=== PATIENT | female | born 1970 | race Two or more races ===

== ENCOUNTER 2016-09-13 12:34 | Day surgery (SDC) | payer OTHER ==
[2016-09-12 10:25] VITALS: BMI 35.9
[~2016-09-13 12:34] MED LIST: LACTATED RINGERS 1,000 ML IV SCH
[2016-09-13] MEDS ORDERED: LIDOCAINE 1% 20 ML VIAL (10MG/ML) FOR IV START INTRADERMA ONE (13:01)
[2016-09-13 13:05] VITALS: TEMP 98.1
[2016-09-13] MEDS ORDERED: PROPOFOL 10 MG/ML 20 ML VIAL IV ONE (13:49)
[2016-09-13] MEDS ORDERED: LIDOCAINE 1% INJ 10MG/ML (20 ML MDV) ONE (13:49)
--- NOTE | 2016-09-13 14:14 | P.PCN ---
Date of Procedure: 09/13/16 Procedure(s) Performed: Procedure: Esophagogastroduodenoscopy and biopsy. Preoperative diagnosis: Gastroesophageal reflux disease and recent issues with nocturnal vomiting. Postoperative diagnosis: 1. Sliding hiatal hernia with no obvious esophagitis or complicated reflux disease. 2. Mild antral gastritis. 3. Multiple biopsies obtained from the duodenum, antrum and esophagus. Preparation and sedation: Was provided by anesthesia. Brief clinical history: The patient is a 46-year-old female who has been experiencing acid reflux for the last year or so and has been taking acid suppressive therapy for control. Over the last month or so, and despite taking her medications, she has been experiencing nausea and vomiting an hour or so after she goes to bed. This has partially responded to changing her acid suppressive medications and taking it twice a day. This evaluation is to assess for esophagitis, complicated reflux disease or other pathology. Procedure: With the patient on her left lateral decubitus position and after informed consent and adequate sedation, I passed the Olympus-GIF 160 video upper endoscope through the cricopharyngeus down the esophagus. GE junction was around 35 cm from the incisors and there was a sliding hiatal hernia around 2 cm in size. The esophagus did not show any obvious erosions, ulcers, strictures or Dean's esophagus. The endoscope was then passed into the stomach which was insufflated with air and inspected in detail including the retroflex view in the cardia. There was some mottling and erythema in the antrum but no ulcers or erosions. Pyloric channel did not show any ulcers. Duodenal bulb, post bulbar area and descending duodenum showed minimal erythema. Because of her symptoms, I obtained multiple biopsies from the duodenum, antrum and esophagus then the endoscope was withdrawn. The patient tolerated the procedure well. Plan: The patient was reassured. Will await biopsy results and make further plans accordingly. It is possible that her nocturnal symptoms will continue to improve the longer she is on intensive dietary and medical regimen. She will follow-up with you as planned and I will be happy to see in the office of her symptoms persist.
[2016-09-13 14:37] VITALS: BP 118/68; PULSE 76; RESP 18
== END 2016-09-13 15:10 | disposition home or self-care (01) ==
LOC: ORWHC2ENDO 12:34
DX: K29.50 Unspecified chronic gastritis without bleeding (principal); K21.9 Gastro-esophageal reflux disease without esophagitis; K44.9 Diaphragmatic hernia without obstruction or gangrene; I25.10 Atherosclerotic heart disease of native coronary artery without angina pectoris; I10 Essential (primary) hypertension; I25.2 Old myocardial infarction; E78.5 Hyperlipidemia, unspecified; Z79.899 Other long term (current) drug therapy; Z91.09 Other allergy status, other than to drugs and biological substances
CPT/HCPCS: 81025; 88305; 88342; 43239; J2001; J2704

== ENCOUNTER 2018-01-15 09:50 | Day surgery (SDC) | payer OTHER ==
[2018-01-13 15:40] VITALS: BMI 36.9
[2018-01-15 11:18] LABS: Glucose,Whole Blood 94 mg/dL (75-99)
[2018-01-15 11:25] VITALS: RESP 18; TEMP 98.3
[2018-01-15] MEDS ORDERED: LIDOCAINE 1% 20 ML VIAL (10MG/ML) FOR IV START INTRADERMA ONE (11:26)
[2018-01-15] MEDS ORDERED: SUCCINYLCHOLINE CHLORIDE 100 MG/5 ML SYR IV ONE (11:45)
[2018-01-15] MEDS ORDERED: fentaNYL (PF) 50 MCG/ML 2 ML AMP ONE (11:45)
[2018-01-15] MEDS ORDERED: MIDAZOLAM 2 MG/2 ML VIAL ONE (11:45)
--- NOTE | 2018-01-15 12:04 | P.PCN ---
Date of Procedure: 01/15/18 Procedure(s) Performed: BRIEF HISTORY: Patient is a 47-year-old pleasant white female, scheduled for an elective colonoscopy as a part of evaluation of chronic diarrhea for the last 1 year duration. She has about 8-10 loose watery bowel movements daily. No weight loss. Denies any rectal bleeding or melena. She also has family history of colon cancer diagnosed in her father at age 63. PROCEDURE PERFORMED: Colonoscopy with biopsy/snare polypectomy. PREOPERATIVE DIAGNOSIS: Chronic diarrhea/family history of colon cancer. IV sedation per Anesthesia. PROCEDURE: After informed consent was obtained, the patient, was brought into the endoscopy unit. IV sedation was administered by Anesthesia under continuous monitoring. Digital rectal examination was normal. Initially the Olympus CF- 160 flexible video colonoscope was then inserted in the rectum, gradually advanced into the cecum without any difficulty. Careful examination was performed as the scope was gradually being withdrawn. Ileocecal valve and the appendiceal orifice were visualized and appeared normal. Prep was fair.. Mucosa of the cecum, ascending colon, appeared normal. In the hepatic flexure there was a 1 cm polyp removed by snare polypectomy. Rest of the transverse colon, descending colon, sigmoid colon, and rectum appeared normal. Random biopsies were done from ascending and descending colon to rule out metastatic scope/collagenous colitis. Retroflexion was performed in the rectum and no lesions were seen. The patient tolerated the procedure well. IMPRESSION: 1 cm hepatic flexure polyp status post polypectomy Rest of the colon appeared normal RECOMMENDATIONS: Findings of this examination were discussed with the patient as well as a family. She was advised to follow with the biopsy results. She' ll be seen in office in 3 weeks. She can have a repeat surveillance colonoscopy in 3-5 years..
[2018-01-15 12:26] VITALS: PULSE 68
[2018-01-15 12:49] VITALS: BP 126/78
== END 2018-01-15 13:02 | disposition home or self-care (01) ==
LOC: ORWHC2ENDO 09:50
PROVIDERS: ATTEND Internal Medicine Gastroenterology
DX: D12.3 Benign neoplasm of transverse colon (principal); K52.9 Noninfective gastroenteritis and colitis, unspecified; Z80.0 Family history of malignant neoplasm of digestive organs; I10 Essential (primary) hypertension; E78.5 Hyperlipidemia, unspecified; J45.909 Unspecified asthma, uncomplicated; E11.9 Type 2 diabetes mellitus without complications; F39 Unspecified mood [affective] disorder; I25.2 Old myocardial infarction; Z79.84 Long term (current) use of oral hypoglycemic drugs; Z79.899 Other long term (current) drug therapy; Z91.09 Other allergy status, other than to drugs and biological substances
CPT/HCPCS: 81025; 88305; 45380; 45385; J2250; J3010; J0330

== ENCOUNTER 2018-09-29 10:53 | Emergency (ER) | payer OTHER ==
[2018-09-29 11:06] VITALS: TEMP 98.5
[2018-09-29] MEDS ORDERED: SODIUM CHLORIDE 0.9% 1,000 ML IV STA ×2 (11:51)
[2018-09-29] MEDS ORDERED: ONDANSETRON 4 MG/2 ML VIAL IVP STA (12:13)
[2018-09-29] MEDS ORDERED: MORPHINE SULFATE 4 MG/ML SYRINGE IVP STA (12:13)
[2018-09-29] MEDS ORDERED: KETOROLAC 30 MG/ML 1 ML VIAL IVP STA (12:13)
--- NOTE | 2018-09-29 12:53 | ED ---
Abdominal Pain HPI - General Chief Complaint: Abdominal Pain Stated Complaint: Stomach pain Time Seen by Provider: 09/29/18 11:47 Source: patient, RN notes reviewed, old records reviewed Limitations: no limitations - History of Present Illness Initial Comments: Miller is a 48-year-old female presents return to the right upper quadrant and diffuse upper abdominal pain for the past 4 days. Patient states she's been having light-colored stools. Denies any change in urination. History of cholecystectomy. Patient states that she is to light colored stools and diarrhea the past 2 days. Patient states that she's had chills but no specific fever. He has history of hypertension and hyperlipidiema - Related Data Home Medications Medication Instructions Recorded Confirmed Lisinopril [Zestril] 10 mg PO QAM 05/27/14 01/13/18 Metoprolol Succinate (ER) [Toprol 25 mg PO QAM 05/27/14 01/13/18 Xl] Simvastatin [Zocor] 20 mg PO HS 05/27/14 01/15/18 ALPRAZolam [Xanax] 0.25 mg PO BID PRN 09/12/16 01/13/18 Lansoprazole [Prevacid] 30 mg PO BID 09/12/16 01/13/18 Fluticasone/Salmeterol [Advair 1 inhalation PO BID 01/13/18 01/13/18 250-50 Diskus] Isosorbide Mononitrate ER [Imdur] 30 mg PO QAM 01/13/18 01/13/18 metFORMIN HCL [Glucophage] 500 mg PO DAILY 01/13/18 01/15/18 Previous Rx's Medication Instructions Recorded Famotidine [Pepcid] 20 mg PO BID #20 tablet 09/29/18 Ondansetron Odt [Zofran Odt] 4 mg PO Q8HR PRN #12 tab 09/29/18 Sucralfate [Carafate] 1 gm PO ACHS #30 tablet 09/29/18 Allergies Allergy/AdvReac Type Severity Reaction Status Date / Time iodine AdvReac Abdominal Verified 09/29/18 11:02 Pain Review of Systems ROS Statement: Those systems with pertinent positive or pertinent negative responses have been documented in the HPI. ROS Other: All systems not noted in ROS Statement are negative. Past Medical History Past Medical History: Asthma, Diabetes Mellitus, GERD/Reflux, Hyperlipidemia, Hypertension, Myocardial Infarction (CT) Additional Past Medical History / Comment(s): loose stools-6-10 times per day,prediabetic Last Myocardial Infarction Date:: APR 2009 History of Any Multi-Drug Resistant Organisms: None Reported Past Surgical History: Cholecystectomy, Heart Catheterization, Uterine Ablation Additional Past Surgical History / Comment(s): Essure Past Anesthesia/Blood Transfusion Reactions: Motion Sickness, Postoperative Nausea & Vomiting (PONV) Past Psychological History: Anxiety, Panic Disorder Smoking Status: Never smoker Past Alcohol Use History: Occasional Past Drug Use History: None Reported - Past Family History Mother Family Medical History: Cancer, Deep Vein Thrombosis (DVT) Additional Family Medical History / Comment(s): PANCREATIC, LUNG,CANCER Father Family Medical History: Cancer Additional Family Medical History / Comment(s): COLON CA General Exam - General Exam Comments Initial Comments: This is a 48-year-old feel. Alert and oriented. No distress. Limitations: no limitations General appearance: alert, in no apparent distress Head exam: Present: atraumatic, normocephalic, normal inspection Eye exam: Present: normal appearance, PERRL, EOMI. Absent: scleral icterus, conjunctival injection, periorbital swelling ENT exam: Present: normal exam, mucous membranes moist Neck exam: Present: normal inspection. Absent: tenderness, meningismus, lymphadenopathy Respiratory exam: Present: normal lung sounds bilaterally. Absent: respiratory distress, wheezes, rales, rhonchi, stridor Cardiovascular Exam: Present: regular rate, normal rhythm, normal heart sounds. Absent: systolic murmur, diastolic murmur, rubs, gallop, clicks GI/Abdominal exam: Present: soft, normal bowel sounds. Absent: distended, tenderness, guarding, rebound, rigid Extremities exam: Present: normal inspection, full ROM, normal capillary refill. Absent: tenderness, pedal edema, joint swelling, calf tenderness Back exam: Present: normal inspection Neurological exam: Present: alert, oriented X3, CN II-XII intact Psychiatric exam: Present: normal affect, normal mood Skin exam: Present: warm, dry, intact, normal color. Absent: rash Course Vital Signs 09/29/18 09/29/18 09/29/18 11:03 12:53 13:30 Temperature 98.5 F Pulse Rate 89 74 74 Respiratory 18 18 16 Rate Blood Pressure 138/62 111/75 111/70 O2 Sat by Pulse 94 L 94 L 97 Oximetry 09/29/18 14:55 Temperature Pulse Rate 69 Respiratory 18 Rate Blood Pressure 106/75 O2 Sat by Pulse 100 Oximetry Medical Decision Making - Lab Data Result diagrams: 09/29/18 12:25 09/29/18 12:25 Lab Results 09/29/18 09/29/18 09/29/18 Range/Units 12:25 12:25 12:25 WBC 7.1 (3.8-10.6) k/uL RBC 4.78 (3.80-5.40) m/uL Hgb 13.8 (11.4-16.0) gm/dL Hct 42.3 (34.0-46.0) % MCV 88.5 (80.0-100.0) fL MCH 28.9 (25.0-35.0) pg MCHC 32.6 (31.0-37.0) g/dL RDW 14.4 (11.5-15.5) % Plt Count 245 (150-450) k/uL Neutrophils % 70 % Lymphocytes % 20 % Monocytes % 5 % Eosinophils % 3 % Basophils % 0 % Neutrophils # 5.0 (1.3-7.7) k/uL Lymphocytes # 1.4 (1.0-4.8) k/uL Monocytes # 0.4 (0-1.0) k/uL Eosinophils # 0.2 (0-0.7) k/uL Basophils # 0.0 (0-0.2) k/uL Sodium 138 (137-145) mmol/L Potassium 4.6 (3.5-5.1) mmol/L Chloride 104 (98-107) mmol/L Carbon Dioxide 28 (22-30) mmol/L Anion Gap 6 mmol/L BUN 9 (7-17) mg/dL Creatinine 0.50 L (0.52-1.04) mg/dL Est GFR (CKD-EPI)AfAm >90 (>60 ml/min/1.73 sqM) Est GFR (CKD-EPI)NonAf >90 (>60 ml/min/1.73 sqM) Glucose 90 (74-99) mg/dL Calcium 9.0 (8.4-10.2) mg/dL Total Bilirubin 0.2 (0.2-1.3) mg/dL AST 42 H (14-36) U/L ALT 47 (9-52) U/L Alkaline Phosphatase 70 (38-126) U/L Troponin I (0.000-0.034) ng/mL Total Protein 6.9 (6.3-8.2) g/dL Albumin 4.1 (3.5-5.0) g/dL Amylase 49 (30-110) U/L Lipase 108 (23-300) U/L Urine Color Light Yellow Urine Appearance Clear (Clear) Urine pH 7.0 (5.0-8.0) Ur Specific [place] 1.006 (1.001-1.035) Urine Protein Negative (Negative) Urine Glucose (UA) Negative (Negative) Urine Ketones Negative (Negative) Urine Blood Negative (Negative) Urine Nitrite Negative (Negative) Urine Bilirubin Negative (Negative) Urine Urobilinogen <2.0 (<2.0) mg/dL Ur Leukocyte Esterase Negative (Negative) 09/29/18 Range/Units 14:25 WBC (3.8-10.6) k/uL RBC (3.80-5.40) m/uL Hgb (11.4-16.0) gm/dL Hct (34.0-46.0) % MCV (80.0-100.0) fL MCH (25.0-35.0) pg MCHC (31.0-37.0) g/dL RDW (11.5-15.5) % Plt Count (150-450) k/uL Neutrophils % % Lymphocytes % % Monocytes % % Eosinophils % % Basophils % % Neutrophils # (1.3-7.7) k/uL Lymphocytes # (1.0-4.8) k/uL Monocytes # (0-1.0) k/uL Eosinophils # (0-0.7) k/uL Basophils # (0-0.2) k/uL Sodium (137-145) mmol/L Potassium (3.5-5.1) mmol/L Chloride (98-107) mmol/L Carbon Dioxide (22-30) mmol/L Anion Gap mmol/L BUN (7-17) mg/dL Creatinine (0.52-1.04) mg/dL Est GFR (CKD-EPI)AfAm (>60 ml/min/1.73 sqM) Est GFR (CKD-EPI)NonAf (>60 ml/min/1.73 sqM) Glucose (74-99) mg/dL Calcium (8.4-10.2) mg/dL Total Bilirubin (0.2-1.3) mg/dL AST (14-36) U/L ALT (9-52) U/L Alkaline Phosphatase (38-126) U/L Troponin I <0.012 (0.000-0.034) ng/mL Total Protein (6.3-8.2) g/dL Albumin (3.5-5.0) g/dL Amylase (30-110) U/L Lipase (23-300) U/L Urine Color Urine Appearance (Clear) Urine pH (5.0-8.0) Ur Specific [place] (1.001-1.035) Urine Protein (Negative) Urine Glucose (UA) (Negative) Urine Ketones (Negative) Urine Blood (Negative) Urine Nitrite (Negative) Urine Bilirubin (Negative) Urine Urobilinogen (<2.0) mg/dL Ur Leukocyte Esterase (Negative) Disposition Clinical Impression: Epigastric pain, Peptic ulcer disease, Light stools Disposition: HOME SELF-CARE Condition: Good Instructions (If sedation given, give patient instructions): Abdominal Pain (ED) Additional Instructions: Patient advised to follow-up with primary care doctor within the next week. The bland liquid diet. Increase the next medication osseous Carafate for possible peptic ulcer. Return to the emergency department if any alarming signs or symptoms occur. Prescriptions: Sucralfate [Carafate] 1 gm PO ACHS #30 tablet Famotidine [Pepcid] 20 mg PO BID #20 tablet Ondansetron Odt [Zofran Odt] 4 mg PO Q8HR PRN #12 tab PRN Reason: Nausea Is patient prescribed a controlled substance at d/c from ED?: No Referrals: Heidi Martin DO [Primary Care Provider] - 1-2 days Time of Disposition: 15:16
[2018-09-29 13:20] LABS: Basophils % (A) 0 %; Eosinophils # (A) 0.2 k/uL (0-0.7); Eosinophils % (A) 3 %; HCT 42.3 % (34.0-46.0); HGB 13.8 gm/dL (11.4-16.0); Lymphocytes # (A) 1.4 k/uL (1.0-4.8); Lymphocytes % (A) 20 %; MCH 28.9 pg (25.0-35.0); MCHC 32.6 g/dL (31.0-37.0); MCV 88.5 fL (80.0-100.0); Monocytes # (A) 0.4 k/uL (0-1.0); Monocytes % (A) 5 %; Neutrophils % (A) 70 %; Platelet Count 245 k/uL (150-450); RBC 4.78 m/uL (3.80-5.40); RDW 14.4 % (11.5-15.5); WBC 7.1 k/uL (3.8-10.6)
--- NOTE | 2018-09-29 13:20 | XR ---
KUB HISTORY: Right upper quadrant pain Frontal KUB 2 images Surgical clips present in the right upper quadrant. Lung bases are clear. No evident bowel obstructio n or pneumoperitoneum. Fallopian tubal ablation coils are suspected within the pelvis. Probable bone island in the left femoral neck. Degenerative disc change in the visualized spine. IMPRESSION: Postop changes. No acute abnormality.
[2018-09-29 13:34] LABS: ALT 47 U/L (9-52); AST 42 U/L (14-36); Albumin 4.1 g/dL (3.5-5.0); Alkaline Phosphatase 70 U/L (38-126); Amylase 49 U/L (30-110); Anion Gap 6 mmol/L; Blood Urea Nitrogen 9 mg/dL (7-17); Carbon Dioxide 28 mmol/L (22-30); Chloride 104 mmol/L (98-107); Glucose 90 mg/dL (74-99); Lipase 108 U/L (23-300); Potassium 4.6 mmol/L (3.5-5.1); Sodium 138 mmol/L (137-145); Total Bilirubin 0.2 mg/dL (0.2-1.3); Total Protein 6.9 g/dL (6.3-8.2)
[2018-09-29] MEDS ORDERED: FAMOTIDINE 20 MG/2 ML VIAL IV STA (13:53)
[2018-09-29] MEDS ORDERED: MAG HYDROX/AL HYDROX/SIMETH 30 ML, HYOSCYAMINE ELIXIR 10 ML, CIMETIDINE HCL 300 MG, LID... PO STA ×4 (13:53)
[2018-09-29 13:59] LABS: Appearance,Urine Clear (Clear); Bilirubin,Urine Negative (Negative); Blood,Urine Negative (Negative); Color,Urine Light Yellow; Glucose,Urine (UA) Negative (Negative); Ketones,Urine Negative (Negative); Leukocyte Esterase,Urine Negative (Negative); Nitrite,Urine Negative (Negative); Protein,Urine Negative (Negative); Specific Gravity,Urine 1.006 (1.001-1.035); Urobilinogen,Urine <2.0 mg/dL (<2.0)
[2018-09-29 14:57] VITALS: BP 106/75; PULSE 69; RESP 18
== END 2018-09-29 15:35 | disposition home or self-care (01) ==
LOC: EC 10:53
DX: K27.9 Peptic ulcer, site unspecified, unspecified as acute or chronic, without hemorrhage or perforation (principal); R19.5 Other fecal abnormalities; J45.909 Unspecified asthma, uncomplicated; E11.9 Type 2 diabetes mellitus without complications; K21.9 Gastro-esophageal reflux disease without esophagitis; E78.5 Hyperlipidemia, unspecified; I10 Essential (primary) hypertension; I25.2 Old myocardial infarction; Z79.84 Long term (current) use of oral hypoglycemic drugs; Z79.899 Other long term (current) drug therapy; Z79.51 Long term (current) use of inhaled steroids; Z88.8 Allergy status to other drugs, medicaments and biological substances; Z90.49 Acquired absence of other specified parts of digestive tract; Z95.818 Presence of other cardiac implants and grafts
CPT/HCPCS: 36415; 80053; 82150; 83690; 84484; 85025; 81003; 74018; 99284; 96374; 96375 ×3; 96361 ×3; J2270; J2405; J1885

== ENCOUNTER → 2018-12-23 | Day surgery (SDC) | payer OTHER ==
[2018-12-19 14:44] VITALS: BMI 35.4
[~2018-12-23] MED LIST changes: +KETAMINE 10 MG/ML 20 ML VIAL ONE; +LIDOCAINE 1% 20 ML VIAL (10MG/ML) FOR IV START INTRADERMA PRN; +LIDOCAINE 1% INJ 10MG/ML (20 ML MDV) ONE; +MIDAZOLAM 2 MG/2 ML VIAL ONE; +PROPOFOL 10 MG/ML 20 ML VIAL IV ONE
[2018-12-23 08:53] VITALS: TEMP 97.6
[2018-12-23 09:31] VITALS: RESP 16
--- NOTE | 2018-12-23 09:44 | P.PCN ---
Date of Procedure: 12/16/18 Description of Procedure: BRIEF HISTORY: Patient is a 46-year-old, pleasant, who presents for outpatient EGD for evaluation of dysphagia and uncontrolled reflux. PROCEDURE PERFORMED: Esophagogastroduodenoscopy with biopsy. PREOPERATIVE DIAGNOSIS: Esophageal dysphagia, GERD. ESTIMATED BLOOD LOSS: Minimal. IV sedation per anesthesia. PROCEDURE: After informed consent was obtained, the patient was brought into the endoscopy unit. IV sedation was administered by Anesthesia under continuous monitoring. Initially the Olympus GIF-190 video endoscope was inserted into the mouth. Esophagus intubated without any difficulty. It was gradually advanced into the stomach and duodenum and carefully examined. The bulb and the second part of the duodenum appeared normal, with biopsies taken. The scope at this time was withdrawn to the stomach, adequately insufflated with air, and upon careful examination, mucosa of the antrum, body, cardia and the fundus appeared normal, except for some mild scattered erythema in the antrum and body suggestive of mild gastritis with biopsies taken. The scope was then withdrawn into the esophagus. The GE junction was located at 35 cm from the incisors. A 3-4 cm hiatal hernia was noted. The esophagus appeared normal, with mid esophageal biopsies taken. There were no erosions or ulcerations seen and the patient tolerated the procedure well. IMPRESSION: 1. Multiple gastritis antrum and body, biopsied. 2. Hiatal hernia. 3. Duodenal biopsies. Mid esophageal biopsies. RECOMMENDATIONS: The findings of this examination were discussed with the patient and her . Continue current medical management. Follow-up with gastroenterology as previously scheduled. Await pathology from biopsies.
[2018-12-23 09:52] VITALS: BP 126/75; PULSE 68
== END | disposition home or self-care (01) ==
LOC: ORWHC2ENDO 08:33
PROVIDERS: ATTEND Internal Medicine
DX: K29.50 Unspecified chronic gastritis without bleeding (principal); K44.9 Diaphragmatic hernia without obstruction or gangrene; R13.14 Dysphagia, pharyngoesophageal phase; K21.9 Gastro-esophageal reflux disease without esophagitis; Z88.3 Allergy status to other anti-infective agents; I25.2 Old myocardial infarction; I10 Essential (primary) hypertension; E78.5 Hyperlipidemia, unspecified; J45.909 Unspecified asthma, uncomplicated; Z79.899 Other long term (current) drug therapy
CPT/HCPCS: 81025; 88305; 43239; J2250; J2001; J2704

== ENCOUNTER → 2020-02-01 | Outpatient (CLI) | payer OTHER ==
[2020-02-01 15:55] LABS: HCT 40.7 % (34.0-46.0); HGB 13.2 gm/dL (11.4-16.0); MCH 28.9 pg (25.0-35.0); MCHC 32.4 g/dL (31.0-37.0); MCV 89.4 fL (80.0-100.0); Platelet Count 269 k/uL (150-450); RBC 4.56 m/uL (3.80-5.40); RDW 13.3 % (11.5-15.5); WBC 7.5 k/uL (3.8-10.6)
[2020-02-01 16:06] LABS: African American GFR (CKD) >90 (>60 ml/min/1.73 sqM); Blood Urea Nitrogen 10 mg/dL (7-17); Magnesium 1.8 mg/dL (1.6-2.3); Non-African American GFR(CKD) 86 (>60 ml/min/1.73 sqM)
== END | disposition home or self-care (01) ==
LOC: LABPAT 15:07
PROVIDERS: ATTEND Internal Medicine Interventional Cardiology
DX: Z01.818 Encounter for other preprocedural examination (principal); I20.9 Angina pectoris, unspecified
CPT/HCPCS: 36415; 82565; 83735; 84520; 85027

== ENCOUNTER 2020-02-15 06:35 | Day surgery (SDC) | payer OTHER ==
[2020-02-11 11:46] VITALS: BMI 36.9
[~2020-02-15 06:35] MED LIST changes: +ALPRAZolam 0.25 MG TAB PO PRN; +ALPRAZolam 0.5 MG TAB PO PRN; +ASPIRIN 325 MG TAB PO STA; -KETAMINE 10 MG/ML 20 ML VIAL ONE; -LACTATED RINGERS 1,000 ML IV SCH; -LIDOCAINE 1% 20 ML VIAL (10MG/ML) FOR IV START INTRADERMA PRN; -LIDOCAINE 1% INJ 10MG/ML (20 ML MDV) ONE; -MIDAZOLAM 2 MG/2 ML VIAL ONE; +NITROGLYCERIN SL TABS 0.4 MG TAB SUBLINGUAL PRN; -PROPOFOL 10 MG/ML 20 ML VIAL IV ONE; +SODIUM CHLORIDE 0.9% 1,000 ML in EMPTY BAG 1 BAG IV ONE
[2020-02-15] MEDS ORDERED: SODIUM CHLORIDE 0.9% 1,000 ML IV ONE (07:11)
[2020-02-15 07:13] VITALS: RESP 16; TEMP 98
[2020-02-15] MEDS ORDERED: MIDAZOLAM 2 MG/2 ML VIAL IVP ONE ×2 (07:46→07:57)
[2020-02-15] MEDS ORDERED: LIDOCAINE 1% INJ 10MG/ML (20 ML MDV) SQ ONE (07:48)
[2020-02-15] MEDS ORDERED: VERAPAMIL SYRINGE (5 MG/10 ML) INTRAARTER ONE ×2 (07:49→08:09)
[2020-02-15] MEDS ORDERED: diphenhydrAMINE 50 MG/ML 1 ML VIAL IVP ONE (07:54)
[2020-02-15] MEDS ORDERED: fentaNYL (PF) 50 MCG/ML 2 ML AMP IVP ONE (07:55)
[2020-02-15] MEDS ORDERED: HEPARIN SODIUM 1,000 UN/ML (10ML VL) IV ONE (07:55)
[2020-02-15] MEDS ORDERED: IOPAMIDOL-370 100ML BTL INJ ONE (08:10)
[2020-02-15] MEDS ORDERED: SODIUM CHLORIDE 0.9% 1,000 ML IV SCH (08:20)
[2020-02-15] MEDS ORDERED: ACETAMINOPHEN TAB 325 MG TAB ONE (08:28)
--- NOTE | 2020-02-15 11:15 | CC ---
CARDIAC CATHETERIZATION REPORT DATE OF SERVICE: 02/15/2020. PROCEDURE: Coronary angiography. PERFORMED BY: Dr. Dank Costa. Moderate conscious sedation time was 22 minutes. Patient was administered 1% oxygen saturation. Hemodynamics and EKG were monitored closely. CLINICAL INFORMATION: Mrs. Yessy Junior is a 49-year-old lady with a history of obesity, hypertension, hyperlipidemia, who had been having symptoms of angina and a positive stress test. In April 2009, she had a cardiac cath which revealed a small branch occlusion of the circumflex and since then she has done well. Stress test revealed evidence of inferolateral fixed defect with partial reversibility raising the possibility of ischemia. Because of symptoms and abnormal stress test, I advised cardiac catheterization. PROCEDURE NOTE: Under local anesthesia and strict aseptic precautions, a 6-Azeri introducer was placed in the right radial artery. There was a lot of tortuosity. Using a JL3.5 and JR4 catheters, I performed coronary angiography. I did not check LV pressures. LV gram was not performed. The sheath was taken out and TR band applied as per protocol. The saturation of the fingers of the right hand of 98%. CORONARY ANGIOGRAPHY FINDINGS: RIGHT CORONARY ARTERY: Dominant vessel, no significant disease distally, bifurcates into PDA, PLV, both of which are free of significant disease. LEFT MAIN CORONARY ARTERY: Short vessel, no significant disease. Bifurcates into LAD and circumflex. LEFT ANTERIOR DESCENDING CORONARY ARTERY: Good caliber vessel, gives off a diagonal branch proximally and smaller septal branches runs all the way to the apex, supplies a sizable amount of myocardium. No significant disease noted. There are only minor irregularities in the entire LAD system of no more than 20%-30%. LEFT POSTERIOR CIRCUMFLEX CORONARY ARTERY: Technically nondominant vessel, gives off a very high obtuse marginal branch and then distally it gives off a second obtuse marginal and continues as a posterolateral. The opacified branches are free of significant disease. There is a late filling in one of the areas in the circumflex territory which may be a chronically occluded vessel. The vessel is small in caliber and opacifies somewhat late. However, there is no acute stenosis that requires any intervention. I cannot exclude a small branch occlusion of circumflex, although I cannot see a stump. Left ventriculogram was not performed. LV pressures were not checked. FINAL IMPRESSION: This patient has a right dominant system. No significant disease in RCA, left main or LAD, circumflex marginal may have a small occlusion but I cannot see a stump. There is some late filling of the branch vessel. Overall opacified branches of nondominant circumflex are free of significant disease. RECOMMENDATION: Findings were discussed with the patient and . I will recommend continued medical therapy with risk factor modification, cardiac rehab to improve conditioning and also a pulmonary evaluation. I discussed my thoughts in detail with the patient. I expect she will be discharged later on today. MMAMBARL / IJN: [id number] /
[2020-02-15 13:26] VITALS: BP 119/69; PULSE 71
== END 2020-02-15 14:40 | disposition home or self-care (01) ==
LOC: CATHCVL 06:35
PROVIDERS: ATTEND Internal Medicine Interventional Cardiology
DX: I77.1 Stricture of artery (principal); I20.0 Unstable angina; R94.39 Abnormal result of other cardiovascular function study; I10 Essential (primary) hypertension; E78.00 Pure hypercholesterolemia, unspecified; J45.909 Unspecified asthma, uncomplicated; E78.5 Hyperlipidemia, unspecified; E66.9 Obesity, unspecified; Z68.37 Body mass index [BMI] 37.0-37.9, adult; Z79.899 Other long term (current) drug therapy; Z79.51 Long term (current) use of inhaled steroids; Z79.82 Long term (current) use of aspirin
CPT/HCPCS: 93454; 81025; C1769; C1894; J2250; J1200; J2001; J3010; J1644; Q9967

== ENCOUNTER → 2021-03-16 | Outpatient (CLI) | payer OTHER ==
[2021-03-16 19:44] LABS: T4, Free (Free Thyroxine) 1.15 ng/dL (0.800-1.800)
== END | disposition home or self-care (01) ==
LOC: LABWHC1 13:13
PROVIDERS: ATTEND Internal Medicine Interventional Cardiology
DX: R00.2 Palpitations (principal)
CPT/HCPCS: 36415; 84439; 84443; 84481

== ENCOUNTER → 2022-05-08 | Outpatient (CLI) | payer OTHER ==
[2022-05-08 15:57] LABS: ALT 38 U/L (8-44); AST 32 U/L (13-35); African American GFR (CKD) 115.7 (60.0-200.0); Albumin 4.5 g/dL (3.8-4.9); Albumin/Globulin Ratio 1.96 (1.60-3.17); Alkaline Phosphatase 68 U/L (41-126); BUN/Creat Ratio 11.93 Ratio (12.00-20.00); Blood Urea Nitrogen 8.3 mg/dL (9.0-27.0); Calcium 9.9 mg/dL (8.7-10.3); Carbon Dioxide 27.4 mmol/L (20.0-27.5); Chloride 104 mmol/L (96-109); Chol/HDL Ratio 2.55 Ratio; Globulin 2.3 g/dL (1.6-3.3); Glucose 97 mg/dL (70-110); LDL Cholesterol,Calculated 66.3 mg/dL (0.0-131.0); Non-African American GFR(CKD) 99.9 (60.0-200.0); Potassium 4.7 mmol/L (3.5-5.5); Sodium 141 mmol/L (135-145); Total Bilirubin <0.15 mg/dL (0.30-1.20); Total Protein 6.8 g/dL (6.2-8.2)
[2022-05-08 18:43] LABS: Microalbumin Creatinine Ratio <30 mg/g Creat (0-30); Urine Creatinine 52.5 mg/dL (28.0-217.0)
== END | disposition home or self-care (01) ==
LOC: LABWHC1 10:14
PROVIDERS: ATTEND Internal Medicine
DX: R73.03 Prediabetes (principal)
CPT/HCPCS: 36415; 80053; 80061; 82043; 82570; 83036

== ENCOUNTER → 2022-09-25 | Outpatient (CLI) | payer OTHER ==
--- NOTE | 2022-09-25 14:59 | US ---
EXAMINATION TYPE: US abdomen limited DATE OF EXAM: 09/25/2022 COMPARISON: NONE CLINICAL INDICATION: Female, 52 years old with history of R1084 ABD PAIN; Pt states superficial palpa ble lump within RUQ x 1 month, GB removed TECHNIQUE: Multiple sonographic images of the right upper quadrant are obtained. FINDINGS: EXAM MEASUREMENTS: Liver Length: 17.3 cm CBD: 0.5 cm Right Kidney: 10.2 x 4.9 x 5.1 cm PHYSICIAN SCIENTIST NOTES: Pancreas: Most of the pancreas is obscured by bowel gas shadowing. Only a small portion of the pancr eatic neck is seen. Liver: Difficult to penetrate, heterogeneous . No focal lesion seen. Gallbladder: Surgically absent Evidence for sonographic Morillo's sign: No CBD: wnl Right Kidney: No evidence of hydro, upper and lower polesare obscured by bowel gas. Pole Framer Machine notes:Superficial/ subcutaneous area scanned within RUQ where pt feels lump- no abnorma lity could be appreciated at this time IMPRESSION: 1. Borderline hepatomegaly at 17.3 cm. Moderate to severe hepatic steatosis. Correlate with LFTs, lip id profile, and patient risk factors. 2. Status post cholecystectomy. No biliary ductal dilatation. 3. Additional targeted scanning along the right upper quadrant lump that the patient feels. No discre te sonographic abnormality in this region. The palpable abnormality can be followed clinically. Resca n if any enlarging lump is detected.
--- NOTE | 2022-09-26 08:41 | MM ---
Reason for Exam: Screening (asymptomatic). Last mammogram was performed 3 year(s) and 5 month(s) ago. Patient History: Menarche at age 10. First Full-Term at age 15. Postmenopausal. Risk Values: Britney 5 year model risk: 0.9%. NCI Lifetime model risk: 6.8%. Prior Study Comparison: 03/03/2008 Bilateral Screening Mammogram, [facility]. 09/04/2016 Bilateral Screening Mammogram, Unknown. 09/10/2017 Bilateral Screening Mammogram, Unknown. 04/14/2019 Bilateral Screening Mammogram, Unknown. Tissue Density: There are scattered fibroglandular densities. Findings: Analyzed By CAD. There is no suspicious group of microcalcifications or new suspicious mass in either breast. Overall Assessment: Negative, BI-RAD 1 Management: Screening Mammogram of both breasts in [address] [facility] will attempt to contact patient to return for supplemental views and ultrasound if indicated. Patient should continue monthly self-breast exams. A clinical breast exam by your physician is recommended on an annual basis. This exam should not preclude additional follow-up of suspicious palpable abnormalities. Note on Britney scores and lifetime risk: 1. A Britney score greater than 3% is considered moderate risk. If this is the case, consider specialist referral to assess eligibility for a risk reducing agent. 2. If overall lifetime risk for the development of breast cancer is 20% or higher, the patient may qualify for future screening with alternating mammogram and breast MRI. Electronically signed and approved by: Josep Victor DO
== END | disposition home or self-care (01) ==
LOC: RADMAMWWP 08:07
PROVIDERS: ATTEND Family Medicine
DX: Z12.31 Encounter for screening mammogram for malignant neoplasm of breast (principal); K76.0 Fatty (change of) liver, not elsewhere classified; Z90.49 Acquired absence of other specified parts of digestive tract; Z78.0 Asymptomatic menopausal state; R19.01 Right upper quadrant abdominal swelling, mass and lump
CPT/HCPCS: 76705; 77063; 77067

== ENCOUNTER 2022-10-02 08:53 | Day surgery (SDC) | payer OTHER ==
[~2022-10-02 08:53] MED LIST changes: -ALPRAZolam 0.25 MG TAB PO PRN; -ALPRAZolam 0.5 MG TAB PO PRN; -ASPIRIN 325 MG TAB PO STA; +LACTATED RINGERS 1,000 ML IV SCH; +LIDOCAINE 1% (10MG/ML) FOR IV START INTRADERMA PRN; -NITROGLYCERIN SL TABS 0.4 MG TAB SUBLINGUAL PRN; -SODIUM CHLORIDE 0.9% 1,000 ML in EMPTY BAG 1 BAG IV ONE
[2022-10-02] MEDS ORDERED: LIDOCAINE 2% INJ 20 MG/ML (2 ML VIAL) ONE (09:40)
[2022-10-02] MEDS ORDERED: PROPOFOL 10 MG/ML 20 ML VIAL IV ONE (09:40)
[2022-10-02 09:42] VITALS: TEMP 98.3
[2022-10-02 09:49] LABS: Glucose,Whole Blood 114 mg/dL (70-110)
--- NOTE | 2022-10-02 09:51 | P.PCN ---
Date of Procedure: 10/02/22 Procedure(s) Performed: BRIEF HISTORY: Patient is a 52-year-old, pleasant, white female scheduled for an upper endoscopy as a part of evaluation of long-standing history of GERD with worsening symptoms lately despite being on Nexium 20 mg twice daily as well as Pepcid at bedtime.. PROCEDURE PERFORMED: Esophagogastroduodenoscopy with biopsy. PREOPERATIVE DIAGNOSIS: Worsening reflux symptoms despite aggressive acid suppressive therapy. IV sedation per anesthesia. PROCEDURE: After informed consent was obtained, the patient was brought into the endoscopy unit. IV sedation was administered by Anesthesia under continuous monitoring. Initially the Olympus GIF-140 video endoscope was inserted into the mouth. Esophagus intubated without any difficulty. It was gradually advanced into the stomach and duodenum and carefully examined. The bulb and the second part of the duodenum appeared normal. The scope at this time was withdrawn to the stomach, adequately insufflated with air, and upon careful examination, mucosa of the antrum, and mild gastritis and biopsies were done from this area. There was large amount of retained solid food in the stomach suggestive of gastroparesis with no evidence of gastric outlet obstruction Mucosa of the body, appeared normal. The fundus and cardia could not be adequately visualized because of retained food in the stomach. The scope was then withdrawn into the esophagus. The GE junction was located at 39 cm from the incisors. The esophagus appeared normal. There were no erosions or ulcerations seen , biopsies were done from the distal esophagus and the patient tolerated the procedure well. IMPRESSION: 1. Retained food in the stomach suggestive of gastroparesis. 2. Mild antral gastritis. RECOMMENDATIONS: The findings of this examination were discussed with the patient as well as a family.. Recommend small frequent meals. Continue with Nexium 20 mg twice daily and increase the Pepcid to 40 mg at bedtime and follow antireflux measures
[2022-10-02 10:25] VITALS: BP 127/86; PULSE 72; RESP 17
== END 2022-10-02 10:44 | disposition home or self-care (01) ==
LOC: ORWHC2ENDO 08:53
PROVIDERS: ATTEND Internal Medicine Gastroenterology
DX: K29.50 Unspecified chronic gastritis without bleeding (principal); K21.9 Gastro-esophageal reflux disease without esophagitis; I25.2 Old myocardial infarction; I10 Essential (primary) hypertension; J45.909 Unspecified asthma, uncomplicated; F41.9 Anxiety disorder, unspecified; R73.09 Other abnormal glucose; Z79.899 Other long term (current) drug therapy
CPT/HCPCS: 81025; 88305; 43239; J2704; J2001

== ENCOUNTER → 2023-03-05 | Outpatient (CLI) | payer OTHER ==
--- NOTE | 2023-03-05 21:57 | CT ---
EXAMINATION TYPE: CT abdomen pelvis w con DATE OF EXAM: 03/05/2023 COMPARISON: NONE HISTORY: 52-year-old female M79.606, lower abdominal pain with bilateral leg pain x2 years TECHNIQUE: Contiguous axial scanning of the abdomen and pelvis following administration of 100 ml Iso lilly 300 IV contrast. Delayed images through the kidneys and coronal/sagittal reconstructions perform ed. CT DLP: 2131.0 mGycm Automated exposure control for dose reduction was used. FINDINGS: The heart is upper limits of normal in size without pericardial effusion. Some strandy atelectasis or scarring in the lower lungs. There is a small to moderate-sized hiatal hernia present. Liver is enlarged at 20.9 cm with marked diminished attenuation of the liver parenchyma. Portal venou s system is patent. No biliary ductal dilatation. Cholecystectomy clips. Adrenal glands, kidneys, spleen, and pancreas within normal limits. No dilated small bowel, free fluid, or free air. No mesenteric or retroperitoneal lymphadenopathy. Tiny fatty umbilical hernia. Oral contrast progressed to the splenic flexure of the colon. There is mild to moderate scattered sto ol. Normal appendix. No pericolonic inflammatory change. Bladder is collapsed. Uterus is retroverted. Bilateral Essure devices. Both ovaries are visualized. N o abnormal fluid collection in the pelvis or pelvic lymphadenopathy. Bones: Moderate to advanced degenerative disc disease L5-S1. Facet arthropathy mid to lower lumbar sp ine. Moderate degenerative disc disease visualized lower thoracic spine. IMPRESSION: 1. SMALL TO MODERATE SIZE HIATAL HERNIA. 2. HEPATOMEGALY AT 20.9 CM WITH MODERATE TO SEVERE HEPATIC STEATOSIS. APPROPRIATE CLINICAL MANAGEMENT ADVISED.
== END | disposition home or self-care (01) ==
LOC: RADCTMAIN 10:28
PROVIDERS: ATTEND Family Medicine
DX: K44.9 Diaphragmatic hernia without obstruction or gangrene (principal); R16.0 Hepatomegaly, not elsewhere classified; K76.0 Fatty (change of) liver, not elsewhere classified; M79.604 Pain in right leg
CPT/HCPCS: 74177; Q9967

== ENCOUNTER → 2023-05-01 | Outpatient (CLI) | payer OTHER ==
[2023-05-01 15:00] LABS: Basophils # (A) 0.06 X 10*3/uL (0.00-0.10); Eosinophils # (A) 0.54 X 10*3/uL (0.04-0.35); Eosinophils % (A) 8.9 %; HGB 14.6 g/dL (12.0-15.0); Lymphocytes % (A) 31.5 %; MCH 30.1 pg (27.0-32.0); MCHC 33.2 g/dL (32.0-37.0); MCV 90.7 FL (80.0-97.0); Mean Platelet Volume 9.3 FL (9.5-12.2); Monocytes # (A) 0.48 X 10*3/uL (0.20-1.00); Monocytes % (A) 7.9 %; NRBC Per 100 WBC 0 X 10*3/uL (0.00-0.01); Neutrophils # (A) 3.04 X 10*3/uL (1.80-7.70); Neutrophils % (A) 50.4 %; Platelet Count 316 X 10*3/uL (140-440); RBC 4.85 X 10*6/uL (4.10-5.20); RDW 13.1 % (11.5-14.5); WBC 6.04 X 10*3/uL (4.50-10.00)
[2023-05-01 15:16] LABS: Blood Urea Nitrogen 11.1 mg/dL (9.0-27.0); Chloride 99 mmol/L (96-109); Creatine Kinase 120 U/L (26-186); Glucose 104 mg/dL (70-110); Magnesium 1.9 mg/dL (1.5-2.4); Phosphorus 2.9 mg/dL (2.4-5.1); Potassium 4.5 mmol/L (3.5-5.5); Sodium 139 mmol/L (135-145)
[2023-05-01 15:17] LABS: ALT 57 U/L (8-44); AST 35 U/L (13-35); Albumin 4.5 g/dL (3.8-4.9); Albumin/Globulin Ratio 1.67 Ratio (1.60-3.17); Alkaline Phosphatase 75 U/L (41-126); Calcium 9.9 mg/dL (8.7-10.3); Carbon Dioxide 28.4 mmol/L (21.6-31.8); Globulin 2.7 g/dL (1.6-3.3); Total Bilirubin <0.2 mg/dL (0.3-1.2); Total Protein 7.2 g/dL (6.2-8.2)
[2023-05-01 15:52] LABS: Erythrocyte Sedimentation Rate 9 mm/Hr (0-30)
== END | disposition home or self-care (01) ==
LOC: LABWHC1 10:35
PROVIDERS: ATTEND Internal Medicine Interventional Cardiology
DX: I10 Essential (primary) hypertension (principal); K76.0 Fatty (change of) liver, not elsewhere classified; E11.9 Type 2 diabetes mellitus without complications; M79.10 Myalgia, unspecified site
CPT/HCPCS: 36415; 80053; 82550; 83036; 83735; 84100; 85025; 85652

== ENCOUNTER → 2024-06-04 | Outpatient (CLI) | payer OTHER ==
[2024-06-04 11:30] LABS: Chol/HDL Ratio 2.43 Ratio; LDL Cholesterol,Calculated 78.6 mg/dL (0.0-131.0)
[2024-06-04 11:31] LABS: ALT 53 U/L (8-44); AST 37 U/L (13-35); Albumin 4.6 g/dL (3.8-4.9); Albumin/Globulin Ratio 1.59 Ratio (1.60-3.17); Alkaline Phosphatase 66 U/L (41-126); BUN/Creat Ratio 15.88 Ratio (12.00-20.00); Blood Urea Nitrogen 12.7 mg/dL (9.0-27.0); Calcium 9.8 mg/dL (8.7-10.3); Carbon Dioxide 28.9 mmol/L (21.6-31.8); Chloride 101 mmol/L (96-109); Globulin 2.9 g/dL (1.6-3.3); Glucose 121 mg/dL (70-110); Potassium 4.4 mmol/L (3.5-5.5); Sodium 139 mmol/L (135-145); Total Bilirubin 0.3 mg/dL (0.3-1.2); Total Protein 7.5 g/dL (6.2-8.2)
== END | disposition home or self-care (01) ==
LOC: LABWHC1 08:05
PROVIDERS: ATTEND Family Medicine
DX: I10 Essential (primary) hypertension (principal); E11.9 Type 2 diabetes mellitus without complications; E78.5 Hyperlipidemia, unspecified
CPT/HCPCS: 36415; 80053; 80061; 83036

== ENCOUNTER → 2024-09-17 | Outpatient (CLI) | payer OTHER ==
--- NOTE | 2024-09-17 08:54 | MM ---
Reason for Exam: Screening (asymptomatic). Last mammogram was performed 2 year(s) and 0 month(s) ago. Patient History: Menarche at age 10. First Full-Term at age 15. Postmenopausal. Risk Values: Britney 5 year model risk: 0.9%. NCI Lifetime model risk: 6.6%. Prior Study Comparison: 09/10/2017 Bilateral Screening Mammogram, Unknown. 04/14/2019 Bilateral Screening Mammogram, Unknown. 09/25/2022 Bilateral MG 3D screening mammo w/cad, [facility]. Tissue Density: There are scattered areas of fibroglandular density. Findings: Analyzed By CAD. There are tiny benign-appearing rounded and linear calcifications redemonstrated scattered throughout the right breast. There is no suspicious group of microcalcifications or new suspicious mass in either breast. Overall Assessment: Benign, BI-RAD 2 Management: Screening Mammogram of both breasts in 1 year. . Patient should continue monthly self-breast exams. A clinical breast exam by your physician is recommended on an annual basis. This exam should not preclude additional follow-up of suspicious palpable abnormalities. Note on Britney scores and lifetime risk: 1. A Britney score greater than 3% is considered moderate risk. If this is the case, consider specialist referral to assess eligibility for a risk reducing agent. 2. If overall lifetime risk for the development of breast cancer is 20% or higher, the patient may qualify for future screening with alternating mammogram and breast MRI. [facility], , 09/17/2024 8:52 AM. Electronically signed and approved by: Oliver Muir M.D.
== END | disposition home or self-care (01) ==
LOC: RADMAMWWP 08:23
PROVIDERS: ATTEND Family Medicine
DX: Z12.31 Encounter for screening mammogram for malignant neoplasm of breast (principal); R92.323 Mammographic fibroglandular density, bilateral breasts; R92.1 Mammographic calcification found on diagnostic imaging of breast; Z78.0 Asymptomatic menopausal state
CPT/HCPCS: 77063; 77067